=== PATIENT | female | born 1985 | race Caucasian/White ===

== ENCOUNTER 2019-03-01 23:52 | Emergency (ER) | payer OTHER ==
[~2019-03-01] VITALS: Ht 157.5 cm; Wt 68.0 kg
[2019-03-02] MEDS ORDERED: NS 1000ML 1,000 ML IV ONE ×2 (00:14→00:30)
--- NOTE | 2019-03-02 00:27 | ER.PDOC ---
General Chief Complaint: Requesting Medical Care Stated Complaint: N/D Time seen by MD: 00:05 Source: patient Exam Limitations: no limitations History of Present Illness Initial Comments abdominal pain and vomiting and diarrhea for two days, left abd pain to epigastric area, with multiple episodes of vomiting and watery diarrhea, no blood Radiation: LUQ, LLQ, epigastric Associated Symptoms: diarrhea, nausea/vomiting Exacerbated by: movements Relieved By: remaining still Allergies: Coded Allergies: No Known Allergies (Unverified , 11/26/17) Past Medical History Medical History: other Surgical History: tubal Social History Drug Use: none Constitutional: denies chills, denies fever Respiratory: denies cough Cardiovascular: denies chest pain, denies lightheadedness, denies palpitations, denies syncope Gastrointestinal: abdominal pain, diarrhea, nausea, vomiting Genitourinary: denies flank pain Musculoskeletal: denies neck pain Skin: denies rash Psychiatric/Neurological: denies headache Hematologic/Lymphatic: denies blood clots Physical Exam General Appearance: No Apparent Distress, WD/WN HEENT: PERRL/EOMI Neck: Non-Tender Respiratory: lungs clear, normal breath sounds Cardiovascular: Regular Rate, Rhythm Gastrointestinal: Soft, Tenderness Back: Normal Inspection Extremities: Normal Range of Motion, Non-Tender 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 Course Sepsis Screening Results: Posi: POSITIVE SEPSIS RISK Duration or Total Time Spent w: 15 Departure Time of Disposition: 01:49 Disposition: 01 HOME, SELF-CARE Impression: Primary Impression: Vomiting Additional Impressions: Diarrhea Abdominal pain Condition: Stable Patient Instructions: Abdominal Pain, Diarrhea, Nausea and Vomiting Referrals: PCP,UNKNOWN (PCP) PRIMARY CARE PROVIDER Additional Instructions: return for any worsening symptoms Duration or Time Spent with Pa: 15 Problem Qualifiers THANG FERRARA MD March 02, 2019 00:27
[2019-03-02 00:32] VITALS: BP 125/79
[2019-03-02 00:40] LABS: BASOPHIL # 0.1 10^3/uL (0.0-0.1); BASOPHIL % 0.4 % (0.0-0.2); EOSINOPHIL # 0.2 10^3/uL (0.0-0.2); EOSINOPHIL % 1.6 % (0.0-5.0); HEMOGLOBIN 14.1 g/dL (12.0-15.0); LYMPHOCYTES # 4.6 10^3/uL (1.0-4.8); LYMPHOCYTES % 32.3 % (24.0-44.0); MEAN CELL HGB 30.6 pg (26-34); MEAN CELL HGB CONCENTRATION 34.2 g/dL (33-37); MEAN CORP VOLUME 89.4 fL (78-100); MEAN PLATELET VOLUME 9.5 fL (7.8-11.0); MONOCYTES # 1.1 10^3/uL (0.3-0.8); MONOCYTES % 7.4 % (5.0-12.0); NEUTROPHIL # 8.4 10^3/uL (1.8-7.7); NEUTROPHILS % 58.1 % (41.0-85.0); RED CELL DISTRIBUTION WIDTH 13.8 % (11.5-14.5); WHITE BLOOD CELL 14.4 10^3/uL (4.5-11.0)
[2019-03-02 01:04] LABS: CALCIUM 8.7 mg/dL (8.4-10.5)
--- NOTE | 2019-03-02 01:43 | DIREP ---
PROCEDURE:CT ABDOMEN/PELVIS W/ CONTRAST COMPARISON:None. INDICATIONS:abdominal pain with vomiting TECHNIQUE:Axial images were created through the abdomen and pelvis with non-ionic intravenous contrast material. No oral contrast was administered. Sagittal and coronal reconstructions were performed from source images. FINDINGS: LUNG BASES:Normal. No visible pulmonary or pleural disease. LIVER:Normal. No significant liver lesions are identified. BILIARY:Normal. No visible dilatation or calcification. PANCREAS:Normal. No lesion, fluid collection, ductal dilatation, or atrophy. SPLEEN:Normal. No enlargement or focal lesion. ADRENALS:Normal. No mass or enlargement. URINARY TRACT:Normal. No focal lesions or hydronephrosis. AORTA/VASCULAR:Normal. No aneurysm. RETROPERITONEUM:Normal. No mass or adenopathy. BOWEL/MESENTERY: Evaluation of the bowel is limited by lack of oral contrast, but there is no apparent obstruction or mass. The appendix is well visualized and normal in diameter without surrounding inflammation. ABDOMINAL WALL:Normal. No mass or hernia. PELVIC ORGANS:2.2 cm right ovarian follicle or cyst. Physiologic amount of free fluid in the pelvic cul-de-sac. BONES:Normal for age. No bony lesion or acute fracture. OTHER:Negative. CONCLUSION: 1. No diagnostic abnormality Dictated by: William Beckett Jr. on 03/02/2019 at 01:39 AM
[2019-03-02 02:00] VITALS: BP 122/76
--- NOTE | 2019-03-02 02:10 | NUR ---
IV IV removed, Tip intact. Placed cottonball over IV site, secured with coban. Instructed patient to remove coban on the arrival of home.
[2019-03-02 02:22] LABS: BAND NEUTROPHILS 3 % (2-6); EOSINOPHIL 1 % (1-4); LYMPHOCYTE 28 % (25-36); MONOCYTE 4 % (3-9); SEGMENTED NEUTROPHILS 63 % (31-76)
[2019-03-02 03:01] VITALS: BP 122/76
== END 2019-03-02 02:17 | disposition home or self-care (01) ==
LOC: ER 23:52
DX: R10.9 Unspecified abdominal pain (principal); R19.7 Diarrhea, unspecified; R11.10 Vomiting, unspecified
CPT/HCPCS: 36415; 74177; 80053; 83690; 84703; 85025; 96360; 99285; Q9965

== ENCOUNTER 2019-03-03 07:01 | Emergency (ER) | payer OTHER ==
[~2019-03-03] VITALS: Ht 157.5 cm; Wt 66.2 kg
--- NOTE | 2019-03-03 07:01 | NUR ---
ARRIVAL PATIENT TO ROOM 6, STATES THAT SHE RECEIVED A RASH FROM THE ZOFRAN. ASSESSMENT COMPLETED, AWAITING MD MSITH, CONNECTED TO ALL MONITORS.
[2019-03-03 07:22] VITALS: BP 142/99
--- NOTE | 2019-03-03 07:32 | ER.PDOC ---
General Chief Complaint: Skin Rash/Abscess Stated Complaint: BODY RASH Time seen by MD: 07:32 Source: patient Exam Limitations: no limitations History of Present Illness Initial Comments rash for two days itchy, patient states she thinks it is secondary to the zofran medication she took, she states she was seen 3 days ago for vomiting and diarrhea which is now gone, she took two dose of zofran at home then developed a rash hours later, she states she in not sure it was the medication the rash is itchy, no elvin or difficulty swallowing, Timing/Duration: unsure Severity: moderate Location: trunk, RLE, LLE Quality: itchy Exposure: other Prior symptoms/Treatment: Recenly Seen Allergies: Coded Allergies: No Known Allergies (Unverified , 11/26/17) Past Medical History Medical History: no pertinent history Surgical History: tubal LMP (females 10-50): tubal Social History Smoking: cigarettes, less than 1 pack/day Alcohol Use: occassionally Drug Use: none Constitutional: denies chills, denies fever EENTM: denies nose pain Respiratory: denies cough, denies shortness of breath, denies SOB at rest Cardiovascular: denies chest pain, denies lightheadedness Gastrointestinal: denies abdominal pain, denies diarrhea, denies vomiting Genitourinary: denies dysuria, denies flank pain Musculoskeletal: denies back pain, denies joint swelling, denies muscle pain, denies muscle stiffness, denies neck pain Skin: rash Psychiatric/Neurological: denies headache Hematologic/Lymphatic: denies blood clots Physical Exam General Appearance: alert, no distress Skin: warm/dry, nml color Location: generalized Extremities: non-tender Neck: trachea midline Respiratory: no resp. distress, breath sounds nml CVS: reg. rate & rhythm, heart sounds nml Abdomen: non-tender NEURO/PSYCH: oriented x 3, CN's nml as tested, motor nml Comments papular rash on arms and legs and abdomen, not urticarial, no petechia or pupura, the rash is excoriated from patient itching, no signs of cellulitis. Results/Orders Results/Orders Vital Signs Date Time Temp Pulse Resp B/P (MAP) Pulse Ox O2 Delivery O2 Flow Rate FiO2 03/03/19 07:22 98.0 90 18 142/99 (113) 99 Room Air 98.0 5/5/19 07:17 98.4 90 18 99 Room Air 98.4 03/03/19 07:17 98.0 90 18 98.0 Departure Time of Disposition: 07:38 Disposition: 01 HOME, SELF-CARE Impression: Primary Impression: Dermatitis Condition: Stable Patient Instructions: Contact Dermatitis Referrals: PCP,UNKNOWN (PCP) PRIMARY CARE PROVIDER Additional Instructions: return for any worsening symptoms, take benadryl over the counter as directed for 5 days, do not take zofran again and list as allergy in case this medication caused your symptoms Duration or Time Spent with Pa: 10 THANG FERRARA MD March 03, 2019 07:32
[2019-03-03] MEDS ORDERED: BENADRYL PO STA (07:36)
[2019-03-03] MEDS ORDERED: BENADRYL PO ONE (07:48)
[2019-03-03] MEDS ORDERED: PREDNISONE ONE (07:48)
[2019-03-03 07:58] VITALS: BP 142/99
[2019-03-03] MEDS ORDERED: PREDNISONE PO SCH (08:00)
== END 2019-03-03 07:57 | disposition home or self-care (01) ==
LOC: ER 07:01
DX: L30.9 Dermatitis, unspecified (principal); F17.210 Nicotine dependence, cigarettes, uncomplicated
CPT/HCPCS: 99283; J7512; Q0163

== ENCOUNTER 2019-12-12 15:22 | Emergency (ER) | payer OTHER ==
[~2019-12-12] VITALS: Ht 160 cm; Wt 68.0 kg
[2019-12-12 15:43] VITALS: BP 135/95
[2019-12-12 15:49] VITALS: BP 135/95
[2019-12-12 16:16] LABS: BILIRUBIN,URINE NEGATIVE (NEGATIVE); UROBILINOGEN,URINE NORMAL (NEGATIVE)
--- NOTE | 2019-12-12 16:17 | ER.PDOC ---
General Chief Complaint: Vaginal Bleed Stated Complaint: SPOTTING,CRAMPING Time seen by MD: 16:12 Source: patient Exam Limitations: no limitations History of Present Illness Initial Comments Bleeding per vaginal with lower abdominal cramps today, she thinks she is even though she told me that 7 tests done at home are all negative. She says that her positive test in only shows up on blood draw. Prior to this, she has not had a period in 4 Months. Timing/Duration: this morning Severity/Quality: moderate, cramping Vaginal Bleed: similar to periods LMP (females 10-50): : 4 Para: 3 Test: home Associated Symptoms: abdominal pain (cramping) Allergies: Coded Allergies: No Known Allergies (Unverified , 11/26/17) Past Medical History Medical History: no pertinent history Surgical History: tubal Social History Alcohol Use: none Drug Use: none Review of Systems Constitutional: no symptoms reported Respiratory: no symptoms reported Cardiovascular: no symptoms reported Gastrointestinal: see HPI Genitourinary: see HPI All Other Systems: Reviewed and Negative Physical Exam General Appearance: No Apparent Distress, WD/WN Neck: nml inspection, non-tender Cardiovascular/Respiratory: Regular Rate, Rhythm, No M/R/G, Normal Peripheral Pulses, No JVD, Normal Breath Sounds, No Respiratory Distress Abdomen: Normal Bowel Sounds, Non Tender, Soft, No Organomegaly, No Pulsatile Mass Back: nml inspection Extremities: Normal Range of Motion, Non-Tender, Normal Inspection, No Pedal Edema, No Calf Tenderness, Normal Capillary Refill 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, No Motor/Sensory Deficits, Alert, Normal Mood/Affect, Oriented x 3 Skin: Normal Color, Warm/Dry Lymphatic: No Adenopathy Results/Orders Results/Orders Orders - CARMELITA JOSEPH MD Cbc With Auto Diff (12/12/19 16:10) Hcg Qualitative Serum (12/12/19 16:10) Urinalysis (12/12/19 16:11) Vital Signs Date Time Temp Pulse Resp B/P (MAP) Pulse Ox O2 Delivery O2 Flow Rate FiO2 12/12/19 15:49 98.1 111 20 135/95 (108) 98 Room Air 12/12/19 15:49 98.1 111 20 12/12/19 15:43 98.1 111 20 98 Laboratory Tests Test 12/12/19 13:36 12/12/19 16:20 Urine Collection Type VOID Urine Color YELLOW (YELLOW) Urine Appearance CLEAR (CLEAR) Urine Bilirubin NEGATIVE MG/DL (NEGATIVE) Urine Ketones NEGATIVE (NEGATIVE) Urine Specific [place] 1.020 (1.005-1.035) Urine pH 5 (5.0-6.0) Urine Protein NEGATIVE (NEGATIVE) Urine Urobilinogen NORMAL (NEGATIVE) Urine Nitrate NEGATIVE (NEGATIVE) Urine Leukocyte Esterase NEGATIVE (NEGATIVE) Urine Blood 250 4+ (NEGATIVE) H Urine RBC 5-10 RBC/HPF (NONE SEEN) H Urine WBC 0-2 WBC/HPF (0-2) Urine Squamous Epithelial Cells RARE #/HPF (FEW) Urine Bacteria NONE SEEN (NONE SEEN) Urine Glucose NORMAL (NEGATIVE) White Blood Count 12.5 10^3/uL (4.5-11.0) H Red Blood Count 4.84 10^6/uL (4.00-5.20) Hemoglobin 14.6 g/dL (12.0-15.0) Hematocrit 44.0 % (36.0-46.0) Mean Corpuscular Volume 90.9 fL (78-100) Mean Corpuscular Hemoglobin 30.2 pg (26-34) Mean Corpuscular Hemoglobin Concent 33.2 g/dL (33-36.5) Red Cell Distribution Width 13.3 % (11.5-14.5) Platelet Count 383 10^3/uL (150-400) Mean Platelet Volume 9.1 fL (7.8-11.0) Neutrophils (%) (Auto) 58.8 % (41.0-85.0) Lymphocytes (%) (Auto) 34.6 % (24.0-44.0) Monocytes (%) (Auto) 4.6 % (5.0-12.0) L Neutrophils # (Auto) 7.4 10^3/uL (1.8-7.7) Lymphocytes # (Auto) 4.33 10^3/uL1 (1.0-4.8) Monocytes # (Auto) 0.6 10^3/uL (0.3-0.8) Absolute Immature Granulocyte (auto 0.03 10^3 u/L (0-2) Absolute Eosinophils (auto) 0.2 10^3/uL (0.0-0.2) Immature Granulocytes % 0.20 % (0.00-0.50) Eosinophils % 1.3 % (0.0-5.0) Basophils % 0.5 % (0.0-0.2) H Basophils # 0.1 10^3/uL (0.0-0.1) Serum HCG, Qualitative NEGATIVE (NEGATIVE) Progress Progress Patient's test is negative. I told her to follow up with Dr. Rivera. Departure Time of Disposition: 17:28 Disposition: HOME, SELF-CARE Impression: Primary Impression: Vaginal bleeding Additional Impression: Menstrual abnormality Condition: Stable Referrals: PCP,UNKNOWN (PCP) PRIMARY CARE PROVIDER Additional Instructions: F/U with Dr. Rivera in 2-3 days, call for appointment. Duration or Time Spent with Pa: 30 mins Problem Qualifiers CARMELITA JOSEPH MD Dec 12, 2019 16:17
[2019-12-12 16:23] LABS: APPEARANCE,URINE CLEAR (CLEAR); UA COLOR YELLOW (YELLOW)
[2019-12-12 16:29] LABS: BASOPHIL # 0.1 10^3/uL (0.0-0.1); BASOPHIL % 0.5 % (0.0-0.2); EOSINOPHIL # 0.2 10^3/uL (0.0-0.2); EOSINOPHIL % 1.3 % (0.0-5.0); LYMPHOCYTES # 4.33 10^3/uL1 (1.0-4.8); LYMPHOCYTES % 34.6 % (24.0-44.0); MEAN CORP HGB 30.2 pg (26-34); MONOCYTES # 0.6 10^3/uL (0.3-0.8); MONOCYTES % 4.6 % (5.0-12.0); NEUTROPHIL # 7.4 10^3/uL (1.8-7.7); NEUTROPHILS % 58.8 % (41.0-85.0); PLATELET COUNT 383 10^3/uL (150-400); RED CELL DISTRIBUTION WIDTH 13.3 % (11.5-14.5)
[2019-12-12 17:38] VITALS: BP 126/74
== END 2019-12-12 17:35 | disposition home or self-care (01) ==
LOC: ER 15:22
DX: N93.9 Abnormal uterine and vaginal bleeding, unspecified (principal)
CPT/HCPCS: 36415; 81000; 84703; 85025; 99283